=== PATIENT | male | born 1975 | race Asian ===

== ENCOUNTER 2021-04-25 16:30 | Emergency (ER) | payer OTHER ==
[~2021-04-25] VITALS: Ht 157.5 cm; Wt 69.5 kg
[2021-04-25 16:32] VITALS: BP 111/60
[2021-04-25] MEDS ORDERED: LIDOCAINE 1% 10 ML VIAL SQ ONE (17:00)
[2021-04-25] MEDS ORDERED: PERTUSS(ACELL),DIPH,TET VAC/PF 0.5 ML SYRINGE IM. ONE (17:15)
== END 2021-04-25 18:02 | disposition home or self-care (01) ==
LOC: EMS 16:33
DX: S61.210A Laceration without foreign body of right index finger without damage to nail, initial encounter (principal); W25.XXXA Contact with sharp glass, initial encounter; Y93.89 Activity, other specified; Y92.89 Other specified places as the place of occurrence of the external cause; Y99.8 Other external cause status
CPT/HCPCS: 12001; 73140; 90471; 90715; 99283; J3490